=== PATIENT | female | born 1995 | race Caucasian/White ===

== ENCOUNTER 2022-03-05 04:53 | Inpatient (IN) ==
[2022-03-05] MEDS ORDERED: LACTATED RINGERS 1,000 ML IV SCH ×3 (05:00→08:00)
[2022-03-05] MEDS ORDERED: OXYTOCIN/LR 20 UNIT/1,000 ML BAG IV ONE ×2 (05:00→16:40)
[2022-03-05] MEDS ORDERED: CARBOPROST TROMETHAMINE 250 MCG/ML AMP IM PRN (05:00)
[2022-03-05] MEDS ORDERED: TRANEXAMIC ACID 1,000 MG in SODIUM CHLORIDE 0.9% 100 ML IV PRN (05:00)
[2022-03-05] MEDS ORDERED: miSOPROStoL 200 MCG TABLET RECTAL PRN (05:00)
[2022-03-05] MEDS ORDERED: METHYLERGONOVINE 0.2 MG/1 ML AMP IM PRN (05:00)
[2022-03-05] MEDS ORDERED: ONDANSETRON 4 MG/2 ML VIAL IV PRN (05:00)
[2022-03-05] MEDS ORDERED: OXYTOCIN/LR 20 UNIT/1,000 ML BAG IV SCH (05:30)
[2022-03-05 05:48] LABS: Basophils % 0.2 % (0.0-0.8); Eosinophils # 0.1 10*3/uL (0.0-0.87); Eosinophils % 0.9 % (0.00-10.9); Hematocrit 31.3 VOL% (35.7-47.0); Hemoglobin 10.8 GM/DL (12.0-16.0); Immature Granulocytes % 0.9 %; Lymphocytes # 2.6 10*3/uL (1.4-4.0); Lymphocytes % 22.6 % (21.3-54.2); Mean Corpuscular HGB Conc 34.5 GM/DL (32-36); Mean Corpuscular Volume 97.8 FL (87-102); Mean Platelet Volume 10.1 FL (9.6-12.0); Monocytes # 0.6 10*3/uL (0.11-0.8); Monocytes % 5.3 % (1.7-12.7); Neutrophils % 70.1 % (38.7-73.9); Platelet Count 326 T/CUMM (130-400); Red Cell Distribution Width 12.8 % (9.3-17.3); White Blood Count 11.4 T/CUMM (4-12)
[2022-03-05 06:37] LABS: Alanine Aminotransferase 20 U/L (13-56); Albumin 2.7 G/DL (3.4-5.0); Alkaline Phosphatase 109 U/L (45-117); Aspartate Amino Transferase 19 U/L (0-37); Bilirubin,Total < 0.39 MG/DL (0.20-1.00); Blood Urea Nitrogen 5 MG/DL (7-18); Calcium 8.6 MG/DL (8.5-10.1); Carbon Dioxide 19 MMOL/L (21-32); Chloride 111 MMOL/L (98-107); Glucose 82 MG/DL (74-106); Osmolality,Calculated 274.4 MOS/KG (273-304); Potassium 3.7 MMOL/L (3.5-5.1); Sodium 140 MMOL/L (136-145); Total Protein 6.4 G/DL (6.4-8.2)
[2022-03-05] MEDS ORDERED: LABETALOL 100 MG TABLET PO SCH ×2 (07:45→09:00)
[2022-03-05] MEDS ORDERED: CITRIC ACID/SODIUM CITRATE 30 ML UDCUP PO ONE (07:46)
[2022-03-05] MEDS ORDERED: FAMOTIDINE 20 MG/2 ML VIAL IV ONE (07:46)
[2022-03-05] MEDS ORDERED: ePHEDrine 50 MG/ML VIAL IV PRN (07:46)
[2022-03-05] MEDS ORDERED: LACTATED RINGERS 1,000 ML IV ONE (07:46)
[2022-03-05] MEDS ORDERED: diphenhydrAMINE 50 MG/1 ML VIAL IV PRN ×2 (07:47)
[2022-03-05] MEDS ORDERED: hydrOXYzine HCL 25 MG/1 ML VIAL IM PRN (07:47)
[2022-03-05] MEDS ORDERED: NALOXONE 0.4 MG/ML VIAL IV PRN (07:47)
[2022-03-05] MEDS ORDERED: LACTATED RINGERS 250 ML IV PRN (07:47)
[2022-03-05] MEDS ORDERED: PROMETHAZINE 25 MG/1 ML VIAL IM ONE (07:47)
[2022-03-05] MEDS ORDERED: OXYTOCIN/LR 30 UNIT/1,000 ML BAG IV ONE (08:00)
[2022-03-05] MEDS ORDERED: fentaNYL 2 MCG/ROPIV 0.2% EPID 100 ML EPIDURAL SCH (08:00)
[2022-03-05 09:30] LABS: Bilirubin,Urine Negative (Negative); Blood, Urine Negative (Negative); Glucose,Urine (UA) Negative (Negative); Ketones,Urine Negative (Negative); Mucus,Urine Occasional /LPF (Occasional); Nitrite,Urine Negative (Negative); Protein,Urine Negative (Negative); RBC,Urine <1 /HPF (0-4); Urine Appearance Clear (Clear); Urine Color Yellow (Yellow); Urine Specific Gravity 1.015 (1.001-1.035); Urine Urobilinogen 0.2 eU/dL (<2.0)
[2022-03-05 09:36] LABS: PT Patient Result 10.6 SECS (10.1-12.1)
[2022-03-05 13:45] LABS: Cord Arterial Blood HCO3 20.9 MMOL/L
[2022-03-05 13:49] LABS: Cord Venous Blood PCO2 41.3 MMHG; Cord Venous Blood PO2 31.9
[2022-03-05] MEDS ORDERED: oxyCODONE/ACETAMINOPHEN 5-325 MG TABLET PO PRN ×2 (16:40)
[2022-03-05] MEDS ORDERED: WITCH HAZEL PADS 100/JAR TOP PRN (16:40)
[2022-03-05] MEDS ORDERED: HYDROCORTISONE 2.5% RECTAL CREAM 30 GM TUBE TOP PRN (16:40)
[2022-03-05] MEDS ORDERED: RHO(D) IMMUNE GLOBULIN 300 MCG SYRINGE IM ONE (16:40)
[2022-03-05] MEDS ORDERED: BISACODYL 10 MG SUPP RECTAL PRN (16:40)
[2022-03-05] MEDS ORDERED: LANOLIN 50% CREAM 0.3 OZ TUBE TOP PRN (16:40)
[2022-03-05] MEDS ORDERED: DIPH/TET/ACEL PERT BOOSTER VACCINE 0.5 ML VIAL IM ONE (16:40)
[2022-03-05] MEDS ORDERED: MEASLES/MUMPS/RUBELLA VACCINE 0.5 ML VIAL SUBCUT ONE (16:40)
[2022-03-05] MEDS ORDERED: BENZOCAINE 20%/MENTHOL 0.5% SPRAY 56 GM CAN TOP PRN (16:40)
[2022-03-05] MEDS ORDERED: ACETAMINOPHEN 325 MG TABLET PO PRN (16:40)
[2022-03-05] MEDS: IBUPROFEN 800 MG TABLET PO PRN (20:18)
[2022-03-05] MEDS: DOCUSATE SODIUM 100 MG CAPSULE PO SCH (20:18)
[2022-03-06 06:26] LABS: Basophils % 0.3 % (0.0-0.8); Eosinophils # 0.1 10*3/uL (0.0-0.87); Eosinophils % 1.1 % (0.00-10.9); Hematocrit 28.1 VOL% (35.7-47.0); Hemoglobin 9.5 GM/DL (12.0-16.0); Immature Granulocytes % 0.7 %; Immature Granulocytes Absolute 0.08 #; Lymphocytes # 2.5 10*3/uL (1.4-4.0); Lymphocytes % 21.7 % (21.3-54.2); Mean Corpuscular HGB Conc 33.8 GM/DL (32-36); Mean Corpuscular Volume 99.3 FL (87-102); Mean Platelet Volume 10.3 FL (9.6-12.0); Monocytes # 0.7 10*3/uL (0.11-0.8); Monocytes % 6.2 % (1.7-12.7); Platelet Count 265 T/CUMM (130-400); Red Blood Count 2.83 MC/CUMM (3.8-5.5); White Blood Count 11.4 T/CUMM (4-12)
[2022-03-06] MEDS: DOCUSATE SODIUM 100 MG CAPSULE PO SCH ×2 (08:39→20:39)
[2022-03-06] MEDS: MULTIVITAMIN (PRENATAL) TABLET PO SCH (08:39)
[2022-03-06] MEDS: IBUPROFEN 800 MG TABLET PO PRN ×2 (08:40→20:38)
[2022-03-07 07:23] VITALS: BP 110/60
[2022-03-07] MEDS ORDERED: MEASLES/MUMPS/RUBELLA VACCINE 0.5 ML VIAL SUBCUT ONE (09:42)
[2022-03-07] MEDS ORDERED: DIPH/TET/ACEL PERT BOOSTER VACCINE 0.5 ML VIAL IM ONE (09:43)
[2022-03-07] MEDS: DOCUSATE SODIUM 100 MG CAPSULE PO SCH (09:55)
[2022-03-07] MEDS: MULTIVITAMIN (PRENATAL) TABLET PO SCH (09:55)
== END 2022-03-07 13:30 | disposition home or self-care (01) | DRG 560 ==
LOC: N.LD 04:53 → N.OB 16:43
PROVIDERS: ADMIT Obstetrics & Gynecology; ATTEND Obstetrics & Gynecology